=== PATIENT | female | born 1965 | race Caucasian/White ===

== ENCOUNTER 2021-09-22 07:16 | Day surgery (SDC) | payer OTHER, MEDICAID, SELFPAY ==
[2021-09-22 07:53] VITALS: BP 129/72; PULSE 59; RESP 16; TEMP 36.1; O2SAT 100; BMI 35.9
[2021-09-22] MEDS: Lactated Ringers 1,000 ML 15 ML IV (08:00)
--- NOTE | 2021-09-22 08:38 | PCM.HP.BLA ---
History and Physical Date of Admission: 09/22/21 Intake Vital Signs 08/31/21 08:51 Height 5 ft 4 in Weight: 213 lb 6 oz BMI 36.6 BP 139/84 H Blood Pressure Location Rt brachial Position Sitting Respiration 18 Pulse 79 Pulse Source Monitor Temp 97.6 F L Temp Source Temporal Pulse Oximetry (%) 96 Oxygen Delivery Method room air Intake Visit Reasons: UPPER & LOWER SCOPE Chief Complaint: abdominal pain Is patient in pain?: No Allergies No Known Allergies Allergy (Verified 08/31/21 08:52) Medications fluoxetine 40 mg capsule 40 mg PO DAILY 08/31/21 [History Confirmed 08/31/21] pantoprazole 40 mg tablet,delayed release 40 mg PO DAILY 08/31/21 [History Confirmed 08/31/21] trazodone 150 mg tablet 150 mg PO QHS PRN 08/31/21 [History Confirmed 08/31/21] PFSH Medical History (Updated 08/31/21 @ 09:[address] Ghulam Wiseman MD) Abdominal pain Anxiety and depression Gout Hemorrhoids Kidney stones Low back pain Surgical History (Updated 08/31/21 @ 08:49 by Aide Zaragoza) History of bladder suspension procedure History of extraction of renal calculus History of hysterectomy Hx laparoscopic cholecystectomy Family History (Updated 08/31/21 @ 08:49 by Aide Zaragoza) Mother Cancer Father Colon cancer Social History (Updated 08/31/21 @ 08:50 by Aide Zaragoza) Smoking Status: Never smoker alcohol intake: never substance use type: does not use HPI HPI HPI: SPENCER VO, is a 55 F who presents to the office today for left-sided abdominal pain. Patient reports it is coming from the flank and wrapping around anteriorly. She says this is been going on for years. She has a kidney stone history on the left side. ROS General General: Yes weight change; No appetite, fatigue, colon cancer, breast cancer or weakness HEENT HEENT: No difficulty swallowing, eye injury, eye surgery, swollen glands or hoarseness Endo Endocrine: No thyroid disease, diabetes mellitus, thyroid cancer, Hair loss, heat intolerance or cold intolerance Skin Skin: No rash or changing moles Breast Breast: No left breast lump, right breast lump, nipple discharge, breast pain, abnormal mammogram, abnormal US or breast enlargement Musc Musculoskeletal: No back problems, arthritis, rheumatoid arthritis, gout or joint pain Cardio Cardiovascular: No murmur, pacemaker, heart disease, atrial fibrillation, high blood pressure, heart attack, heart stent, palpitations, shortness of breat with exertion or chest pain Psych Psychiatric: Yes depression and anxiety; No hearing voices Resp Respiratory: No shortness of breath, No sleep apnea, No cough, No COPD, No asthma, No emphysema and No wheezing Gastro Gastrointestinal: Yes abdominal pain, No nausea or vomiting, No diarrhea, No constipation, No blood in stool, No acid reflux, Yes hemorrhoids, No ulcers, No gallbladder problem and No black,tarry stools Sergio Hematologic: No blood thinners, No blood disorders, No bleeding, No anemia and No blood clots Neuro Neurologic: No system reviewed and no additional complaints, except as documented, No as per HPI, No abnormal gait, No abnormal hearing, No abnormal movements, No abnormal speech, No behavioral changes, No burning sensations, No confusion, No convulsions, No disequilibrium, No dizziness, No localized weakness, No frequent falls, No headache(s), No lack of coordination, No loss of vision, No memory loss, No numbness, No other visual disturbances, No radicular pain, No restless legs, No sensory deficit, No syncope, No tingling, No tremor(s), No weakness and No other Exam Const General: cooperative Orientation: alert and oriented x3 HENFL Head: normal to inspection Neck Neck: normal visual inspection and full ROM Chest Chest palpation & inspection: normal inspection of the chest Resp Effort & Inspection: normal respiratory effort Auscultation: clear to auscultation bilaterally Cardio Rate: regular rate Rhythm: regular rhythm GI Inspection: non-distended Palpation: soft and nontender Skin General: no rashes or lesions noted Neuro General: patient alert and patient oriented x3 Extrem General: full ROM Psych Appearance: grossly normal Mental Status: mental status grossly normal Assessment and Plan Assessment and Plan (1) Left lateral abdominal pain: Status: Acute Plan - Dr. Ghulam Wiseman MD: The patient has left flank pain wrapping around to the anterior left abdomen. Her last colonoscopy was approximately 5 years ago and she did have polyps. She has a family history of colon cancer in her parents. The patient has had multiple CAT scans over the years which showed several kidney stones on bilateral kidneys. She had her last CAT scan at the beginning of the month which showed multiple kidney stones in the left kidney. She had ureteroscopy which did not show any stones in the ureter. I believe her pain is still related to this left kidney stones. I will perform a colonoscopy due to the patient's colon cancer history and history of polyps but I informed her that I do not believe that is where the pain is originating from. I explained endoscopy in detail to the patient. I explained the risks including but not limited to stroke or heart attack with anesthesia, perforation of the GI tract, bleeding, infection. I explained that any of these could necessitate further emergency surgery. The patient understands and all questions were answered sufficiently. The patient wishes to proceed with procedure. Ghulam Wiseman MD Pager: [facility] [address] [place] [address] [address] [place] [address] Office: I have re-examined the patient. There are no clinical changes since date of exam.
[2021-09-22 09:06] VITALS: BP 121/77; BP 129/72; PULSE 68; RESP 18; TEMP 36.3; O2SAT 96
[2021-09-22 09:10] VITALS: BP 110/74; BP 129/72; PULSE 66; RESP 16; O2SAT 95
--- NOTE | 2021-09-22 09:11 | OP.COLON_ITS ---
Patient Name: Toña Ariza Procedure Date: 09/22/2021 8:41 AM Date of : 1965 Age: 55 Procedure: Colonoscopy Indications: Abdominal pain in the left lower quadrant Providers: Ghulam Wiseman MD Medicines: Monitored Anesthesia Care Patient Profile: This is a 55 year old female. Refer to note in patient chart for documentation of history and physical. Last Colonoscopy: 5 years ago. Complications: No immediate complications. Procedure: Pre-Anesthesia Assessment: - Prior to the procedure, a History and Physical was performed, and patient medications and allergies were reviewed. The patient's tolerance of previous anesthesia was also reviewed. The risks and benefits of the procedure and the sedation options and risks were discussed with the patient. All questions were answered, and informed consent was obtained. Prior Anticoagulants: The patient has taken no previous anticoagulant or antiplatelet agents. After reviewing the risks and benefits, the patient was deemed in satisfactory condition to undergo the procedure. After I obtained informed consent, the scope was passed under direct vision. Throughout the procedure, the patient's blood pressure, pulse, and oxygen saturations were monitored continuously. The pediatric colonoscope was introduced through the anus and advanced to the cecum, identified by appendiceal orifice and ileocecal valve. The colonoscopy was performed without difficulty. The patient tolerated the procedure well. The quality of the bowel preparation was good. Scope In: 8:52:30 AM Scope Withdrawal Time 0 hours 6 minutes 4 seconds Scope Out: 9:03:41 AM Total Procedure Duration Time 0 hours 11 minutes 11 seconds Findings: The entire examined colon appeared normal on direct and retroflexion views. Impression: - The entire examined colon is normal on direct and retroflexion views. - No specimens collected. Recommendation: - Discharge patient to home. - Resume previous diet. - Continue present medications. - Repeat colonoscopy in 10 years for screening purposes. Procedure Code(s): --- Professional --- 57699, Colonoscopy, flexible; diagnostic, including collection of specimen(s) by brushing or washing, when performed (separate procedure) Diagnosis Code(s): --- Professional --- R10.32, Left lower quadrant pain CPT copyright 2017 [employer]. All rights reserved. The codes documented in this report are preliminary and upon medical office administrator review may be revised to meet current compliance requirements. Ghulam Wiseman MD 09/22/2021 9:11:16 AM This report has been signed electronically. Number of Addenda: 0 Note Initiated On: 09/22/2021 8:41 AM
--- NOTE | 2021-09-22 09:11 | OP.CCLET_ITS ---
09/22/2021 Alejandro Garza Re : Colonoscopy procedure for Toña Ariza Dear Philippe This procedure was performed on Wednesday, September 22, 2021. My impressions and recommendations are as follows: Impressions : - The entire examined colon is normal on direct and retroflexion views. - No specimens collected. Recommendations : - Discharge patient to home. - Resume previous diet. - Continue present medications. - Repeat colonoscopy in 10 years for screening purposes. My findings are described in the full procedure note, which is enclosed. If I can be of further assistance, please feel free to contact me at Doctor phone number(s): , Work: . Sincerely, Ghulam Wiseman MD 09/22/2021 9:11:16 AM This report has been signed electronically.
[2021-09-22 09:15] VITALS: BP 127/82; BP 129/72; PULSE 61; RESP 16; O2SAT 96
[2021-09-22 09:18] VITALS: BP 121/80; BP 129/72; PULSE 57; RESP 18; TEMP 36.5; O2SAT 96
[2021-09-22 09:35] VITALS: BP 129/72
== END 2021-09-22 09:55 | disposition home or self-care (01) ==
LOC: EN 07:18 → AC 07:19
PROVIDERS: PCP Nurse Practitioner Family; Referring Provider Nurse Practitioner Family; Visit Provider Surgery
PROC: 0DJD8ZZ Inspection of Lower Intestinal Tract, Via Natural or Artificial Opening Endoscopic (ICD-10-PCS; CPT 45378; principal; 2021-09-22 08:25)
DX: R10.32 Left lower quadrant pain (principal); K21.9 Gastro-esophageal reflux disease without esophagitis; F32.A Depression, unspecified; F41.9 Anxiety disorder, unspecified; Z87.891 Personal history of nicotine dependence; Z79.899 Other long term (current) drug therapy
CPT/HCPCS: 45378; 87426; J7120; J2405

== ENCOUNTER → 2021-12-17 | Outpatient (CLI) | payer OTHER, MEDICAID, SELFPAY ==
--- NOTE | 2021-12-17 15:46 | RAD_ITS ---
EXAM: XR THORACIC SPINE, 3 VIEWS CLINICAL INDICATION: BACK PAIN TECHNIQUE: Frontal, lateral and swimmer''s views of the thoracic spine. This report was created using [employer] report [employer] technology. COMPARISON: None. FINDINGS: VERTEBRAE: Unremarkable. Preserved vertebral body height. No fracture. No spondylolisthesis. Preservation of the normal thoracic kyphosis. No significant facet arthropathy. DISC SPACES: Unremarkable. Disc spaces are maintained. RAD/Thoracic Spine 3 Views IMPRESSION: No evidence of thoracic spinal fracture or spondylolisthesis. Electronically Signed: Edgar Luna MD at 3:01 EDT ,
--- NOTE | 2021-12-17 15:50 | RAD_ITS ---
EXAM: XR LUMBOSACRAL SPINE, 4 OR 5 VIEWS CLINICAL INDICATION: BACK PAIN TECHNIQUE: Frontal, lateral and bilateral oblique views of the lumbar spine. This report was created using [employer] report generation technology. COMPARISON: None. FINDINGS: VERTEBRAE: Unremarkable. Preserved vertebral body height. No fracture. No spondylolisthesis. Preservation of the normal lumbar lordosis. No significant facet arthropathy. DISC SPACES: No acute findings. Disc spaces are maintained. GASTROINTESTINAL TRACT: Unremarkable as visualized. Included bowel gas pattern is non-obstructive. RAD/L/S Spine Min 4 Views IMPRESSION: No evidence of lumbar spinal fracture or spondylolisthesis. Electronically Signed: Edgar Luna MD at 3:01 EDT ,
== END | disposition home or self-care (01) ==
LOC: RAD 15:43
PROVIDERS: PCP Nurse Practitioner Family; Referring Provider Nurse Practitioner Family; Visit Provider Nurse Practitioner Family
DX: M51.26 Other intervertebral disc displacement, lumbar region (principal); M54.17 Radiculopathy, lumbosacral region
CPT/HCPCS: 72072; 72110

== ENCOUNTER → 2023-01-01 | Outpatient (CLI) | payer OTHER, SELFPAY ==
--- NOTE | 2023-01-01 08:04 | MRI_ITS ---
HISTORY: SPONDYLOSIS,RADICULOPATHY, NECK PAIN. TECHNIQUE: Multiplanar and multisequence MR images of the cervical spine were obtained without contrast. 186 images. COMPARISON: None. FINDINGS: VERTEBRAE: Vertebral body heights maintained. Mild degenerative changes of C3-4. No other significant bone marrow signal abnormality. VERTEBRAL ALIGNMENT: Straightening of the cervical lordosis without anterior or posterior subluxation. SPINAL CORD: Cervical cord signal and morphology within normal limits. SOFT TISSUES: No prevertebral fluid collection. INTERVERTEBRAL DISCS: C2-3: No significant posterior disc protrusion, central canal stenosis, or foraminal narrowing. C3-4: Mild posterior disc bulge osteophyte complex with uncovertebral and facet arthropathy resulting in mild central canal stenosis and bilateral foraminal narrowing. C4-5: Minimal disc bulge with minimal narrowing of the thecal sac. No significant foraminal narrowing. C5-6: Mild left paracentral disc protrusion abutting the left ventral cord with minimal narrowing of the thecal sac and mild left foraminal narrowing. C6-7: Mild disc bulge eccentric to the left resulting in minimal narrowing of the thecal sac and mild left foraminal narrowing. C7-T1: No significant posterior disc protrusion, central canal stenosis, or foraminal narrowing. MRI/Spine Cervical (Routine) IMPRESSION: Mild multilevel degenerative disc disease of the cervical spine resulting in mild spinal canal stenosis and mild foraminal as above. Electronically Signed: Maria Ines Andino MD at 11:00 EDT ,
== END | disposition home or self-care (01) ==
LOC: MRI 08:01
PROVIDERS: PCP Nurse Practitioner Family; Referring Provider Nurse Practitioner Acute Care; Visit Provider Nurse Practitioner Acute Care
DX: M47.22 Other spondylosis with radiculopathy, cervical region (principal); M50.10 Cervical disc disorder with radiculopathy, unspecified cervical region
CPT/HCPCS: 72141